=== PATIENT | female | born 2000 ===

== ENCOUNTER 2022-06-30 14:45 | Inpatient (IN) | payer OTHER ==
[~2022-06-30] VITALS: Ht 149.9 cm; Wt 2.7 kg
[2022-07-04] MEDS ORDERED: PRENATAL TABLE1 EAC1 PO (05:27)
== END 2022-07-07 12:39 | disposition home or self-care (01) | DRG 788 ==
LOC: LDR 07-04 04:50 → OB/GYN 07-04 04:50
PROVIDERS: ADMIT Obstetrics & Gynecology; ATTEND Obstetrics & Gynecology
PROC: 3E033VJ Introduction of Other Hormone into Peripheral Vein, Percutaneous Approach (ICD-10-PCS; 2022-07-04)
PROC: 3E0P7VZ Introduction of Hormone into Female Reproductive, Via Natural or Artificial Opening (ICD-10-PCS; 2022-07-04)
PROC: 4A1HXCZ Monitoring of Products of Conception, Cardiac Rate, External Approach (ICD-10-PCS; 2022-07-04)
PROC: 10D00Z1 Extraction of Products of Conception, Low, Open Approach (ICD-10-PCS; principal; 2022-07-04 14:00)
DX: O61.0 Failed medical induction of labor (principal); O99.824 Streptococcus B carrier state complicating childbirth; Z3A.39 39 weeks gestation of pregnancy; Z37.0 Single live birth; Z20.822 Contact with and (suspected) exposure to COVID-19

== ENCOUNTER 2023-11-27 12:15 | Inpatient (IN) | payer OTHER ==
[~2023-11-27] VITALS: Ht 149.9 cm; Wt 3.2 kg
[~2023-11-27 12:15] MED LIST: PRENATAL TABLE1 EAC1 PO
[2023-11-27 14:40] LABS: HEMOGLOBIN 10.7 g/dL (12.0-15.00); MEAN CELL VOLUME 79.2 fL (80.00-100.00); MEAN CORPUSCULAR HEMOGLOBIN 25.8 pg (27.00-32.0); MEAN CORPUSCULAR HGB CONC 32.5 g/dl (32.0-36.0); PLATELET COUNT 235 K/uL (150-450); RED BLOOD COUNT 4.17 M/uL (4.00-6.00); RED CELL DISTRIBUTION WIDTH 15.8 % (11.5-14.5)
[2023-11-27 14:42] LABS: URINE APPEARANCE Cloudy; URINE BACTERIA 8827.2 uL (0.0-1933); URINE BILIRRUBIN Negative (NEGATIVE); URINE BLOOD Negative; URINE COLOR Yellow; URINE GLUCOSE Negative (NEGATIVE); URINE LEUKOCYTE Moderate; URINE NITRATE Negative; URINE PROTEIN Negative (NEGATIVE); URINE RBC 5.8 uL (0.0-20.8); URINE WBC 108.2 uL (0.0-23.2)
[2023-11-27 15:09] LABS: URINE MUCUS SCANT
[2023-11-27 15:33] LABS: INR < 0.93; PARTIAL THROMBOPLASTIN TIME 24.5 SECONDS (22.0-34.0); PROTHROMBIN TIME 9.2 SECONDS (9.0-11.5)
[2023-11-29] MEDS ORDERED: CHILDREN'S ASPI81 MG PO (11:18)
[2023-11-29] MEDS ORDERED: ERYTHROMYCIN BASE 1 GM TUBE OP ONE (13:22)
[2023-11-29] MEDS ORDERED: OXYTOCIN 10 UNITS/ML VIAL ONE ×3 (13:22→20:31)
[2023-11-29] MEDS ORDERED: ERYTHROMYCIN BASE 3.5 GM OINT...G. OP ONE (15:59)
[2023-11-29] MEDS ORDERED: CHLORHEXIDINE GLUCONATE 120 ML BOTTLE TOP ONE (18:10)
[2023-11-29] MEDS ORDERED: ONDANSETRON HCL 2 MG/ML VIAL ONE (20:01)
[2023-11-29] MEDS ORDERED: KETOROLAC TROMETHAMINE 60 MG VIAL IM STA (20:11)
[2023-11-29] MEDS ORDERED: RINGERS SOLUTION,LACTATED 1,000 ML IV SCH (20:15)
[2023-11-29] MEDS ORDERED: CHLORHEXIDINE GLUCONATE 120 ML BOTTLE TOP SCH (20:15)
[2023-11-29] MEDS ORDERED: PROMETHAZINE HCL 25 MG/ML AMPUL IM PRN (20:15)
[2023-11-29] MEDS ORDERED: MEPERIDINE HCL/PF 50 MG/ML VIAL IM PRN (20:15)
[2023-11-29] MEDS ORDERED: OXYTOCIN 1,000 ML IV SCH (20:15)
[2023-11-29] MEDS ORDERED: ERYTHROMYCIN BASE 1 GM TUBE OP SCH (20:15)
[2023-11-30 02:40] LABS: HEMATOCRIT 31.2 % (36.0-45.00); HEMOGLOBIN 10.2 g/dL (12.0-15.00); MEAN CELL VOLUME 78.8 fL (80.00-100.00); MEAN CORPUSCULAR HEMOGLOBIN 25.7 pg (27.00-32.0); MEAN CORPUSCULAR HGB CONC 32.6 g/dl (32.0-36.0); PLATELET COUNT 200 K/uL (150-450); RED BLOOD COUNT 3.96 M/uL (4.00-6.00); RED CELL DISTRIBUTION WIDTH 16.3 % (11.5-14.5)
[2023-11-30] MEDS ORDERED: OxyCODONE HCL/APAP UD (PERCOCET) PO PRN (09:00)
== END 2023-12-01 17:32 | disposition home or self-care (01) | DRG 785 ==
LOC: OB/GYN 11-29 07:00 → O/R 11-29 10:20 → OB/GYN 11-29 12:15
PROVIDERS: ADMIT Obstetrics & Gynecology; ATTEND Obstetrics & Gynecology
PROC: 0UB70ZZ Excision of Bilateral Fallopian Tubes, Open Approach (ICD-10-PCS; 2023-11-29)
PROC: 4A1HXCZ Monitoring of Products of Conception, Cardiac Rate, External Approach (ICD-10-PCS; 2023-11-29)
PROC: 10D00Z1 Extraction of Products of Conception, Low, Open Approach (ICD-10-PCS; principal; 2023-11-29 07:00)
DX: O34.211 Maternal care for low transverse scar from previous cesarean delivery (principal); Z30.2 Encounter for sterilization; Z3A.39 39 weeks gestation of pregnancy; Z37.0 Single live birth; Z20.822 Contact with and (suspected) exposure to COVID-19